=== PATIENT | female | born 1950 | race Caucasian/White ===

== ENCOUNTER 2016-07-20 14:20 | Emergency (ER) | payer MEDICARE, BC ==
[2016-07-20] MEDS ORDERED: TETRACAINE 0.5% OPHTH SOLN 4ML As Ordered ONE (15:04)
[2016-07-20] MEDS ORDERED: FLUORESCEIN OPHTH 1 MG STRIP As Ordered ONE (16:18)
[2016-07-20] MEDS ORDERED: ERYTHROMYCIN OPHTH OINT As Ordered ONE (16:30)
--- NOTE | 2016-07-20 16:36 | EDDOCDS ---
Nurse's Notes [facility] Name: Kelsey Omalley Age: 66 yrs Sex: Female : 1950 Arrival Date: 07/20/2016 Time: 14:20 Bed I10 / 23 Private MD: VIOLEAT ALEJANDRO Diagnosis: Ocular pain, left eye Presentation: 07/20 14:33 Presenting complaint: Patient states: I had left cataract surgery on July 10 and [facility] today I'm having intense pain, started yesterday afternoon and today it got really bad. Adult Sepsis Screening: The patient does not have new or worsening altered mentation. Patient's respiratory rate is less than 22. Systolic blood pressure is greater than 100. Patient has a qSOFA score of 0- Negative Sepsis Screen. Suicide/Homicide risk assessment- the patient denies having any suicidal and/or homicidal ideations and does not present with any other emotional, behavioral or mental health complaints. Status: Patient is not a automotive service professional or dependent. Transition of care: patient was not received from another setting of care. 14:33 Acuity: MIGUEL Level 3 [facility] 14:33 Method Of Arrival: Walkin/Carried/Asstd [facility] Triage Assessment: 14:36 General: Appears in no apparent distress, comfortable, Behavior is appropriate for age, [facility] cooperative. Pain: Location: left eye Pain currently is 9 out of 10 on a pain scale. EENT: Reports pain in left eye. Respiratory: Airway is patent Respiratory effort is even, unlabored, Respiratory pattern is regular, symmetrical. Derm: Skin is pink, warm & dry. Historical: - Allergies: no known allergies; - Home Meds: 1. Botox 100 unit injection solr every three months (Last dose: 07/06/2016) 2. multivitamin Oral tab 1 tab daily 3. simvastatin 20 mg Oral tab 1 tab once daily 4. Sinemet 25-100 mg Oral tab 1 tab daily 5. Synthroid 75 mcg Oral tab 1 tab once daily 6. venlafaxine 75 mg oral cp24 1 cap twice a day 7. bupropion HCl 200 mg Oral TbER 1 tab 2 times per day - PMHx: dystonic tremors; Hypertension; Hypothyroidism; - PSHx: left wrist ORIF; - Social history: Smoking status: Patient states was never smoker of tobacco. No barriers to communication noted. - Family history: Not pertinent. - : The pt / caregiver states he / she is not on anticoagulants. Home medication list is obtained from the patient. - Exposure Risk Screening:: None identified. Screenin:34 Screening information is obtained from the patient. Fall risk: No risks identified. dsf Assistance ADL's: requires no assistance with activities of daily living. Abuse/DV Screen: The patient / caregiver reports he/she is: not in a situation that causes fear, pain or injury. Nutritional screening: No deficits noted. Advance Directives: Currently, there is no health care proxy. home support is adequate. Assessment: 15:12 General: Appears uncomfortable, Behavior is appropriate for age, cooperative. EENT: srm Reports pain left eye. states sometime letters are on top of each other like when asked to read line of letters for visual acuity. Respiratory: No deficits noted. GI: No deficits noted. 16:34 Adult Sepsis Screening: The patient does not have new or worsening altered mentation. dsf Patient's respiratory rate is less than 22. Systolic blood pressure is greater than 100. Patient has a qSOFA score of 0- Negative Sepsis Screen. General: Appears in no apparent distress, comfortable, Behavior is appropriate for age, cooperative. Pain: Denies pain. Neurological: Level of Consciousness is awake, alert. Cardiovascular: No deficits noted. Respiratory: No deficits noted. Derm: Skin is pink, warm & dry. Vital Signs: 14:22 BP 138 / 74; Pulse 84; Resp 18 S; Temp 98.1(O); Pulse Ox 96% on R/A; Weight 76.66 kg gr2 (R); Height 5 ft. 2 in. (157.48 cm) (R); Pain 8/10; 14:22 Body Mass Index 30.91 (76.66 kg, 157.48 cm) gr2 Vitals: 14:22 Log In Time: July 20, 2016 at 14:22. gr2 Visual Acuity: 15:12 Left Eye Visual acuity 20/40, ; Right Eye Visual acuity 20/80, ; Both Eyes Visual srm acuity 20/60; Without Lenses; ED Course: 14:22 Patient visited by Marya Iyer. gr2 14:22 VIOLETA ALEJANDRO is Private Physician. gr2 14:22 Patient moved to Waiting gr2 14:23 Patient visited by Marya Iyer. gr2 14:23 Patient moved to Pre RCE gr2 14:34 Triage Initiated [facility] 14:42 Patient moved to I10 / 23 jam1 15:12 The patient / caregiver is instructed regarding the plan of care and ED course. srm Accompanied by Friend, Patient has correct armband on for positive identification. 15:13 Patient visited by Mariel Hurtado RN. [facility] 16:08 Jenna Baron PA-C is PHCP. dt4 16:08 Alex Patel MD is Attending Physician. dt4 16:08 Patient visited by Jenna Baron PA-C. dt4 16:34 No IV's were initiated during this patient's visit. No procedures done that require dsf assistance. Administered Medications: 16:20 Drug: Tetracaine (PF) 2 drps [tetracaine HCl (PF) 0.5 % eye drops (2 drps)] Route: dsf Ophthalmic; Site: left eye; 16:20 Drug: Fluorescein 1 strips [fluorescein 1 mg eye strips (1 strips)] Route: Ophthalmic; dsf Site: left eye; 16:34 Drug: erythromycin 0.5 inches [erythromycin 5 mg/gram (0.5 %) eye ointment (0.5 dsf inches)] Route: Ophthalmic; Site: left eye; Order Results: There are currently no results for this order. Outcome: 16:24 Discharge ordered by Provider. dt4 16:34 Discharge Assessment: Patient awake, alert and oriented x 3. No cognitive and/or dsf functional deficits noted. Patient verbalized understanding of disposition instructions. patient administered narcotics - no. The following High Risk Discharge criteria are identified: None. Discharged to home ambulatory. Condition: stable. Discharge instructions given to patient, Instructed on discharge instructions, follow up and referral plans. medication usage, Demonstrated understanding of instructions, medications, Pt was receptive of discharge instructions/ teaching. Prescriptions given X 1. No special radiology studies were completed. Property sent home with patient. 16:35 Patient left the ED. dsf Signatures: Mariel Hurtado, RN Kacy Burden, RESIDENTIAL PLUMBER RESIDENTIAL PLUMBER jam1 Zuleika Mann RN RN dsf Kacy Jeter RN RN [facility] Marya Iyer gr2 Jenna Baron PA-C PA-C dt4 MTDD
--- NOTE | 2016-07-20 16:36 | EDDOCDS ---
Physician Documentation [facility] Name: Kelsey Omalley Age: 66 yrs Sex: Female : 1950 Arrival Date: 07/20/2016 Time: 14:20 Bed I10 23 Private MD: VIOLETA ALEJANDRO Disposition: 07/20/16 16:24 Discharged to Home/Self Care. Impression: Ocular pain, left eye. - Condition is Stable. - Discharge Instructions: Corneal Abrasion. - Prescriptions for Erythromycin 5 mg/gram (0.5 %) Ophthalmic Ointment - apply 1 centimeter by OPHTHALMIC route 2-3 times daily for 7 days; 1 tube. - Medication Reconciliation, Local Pharmacy Hours form. - Follow up: Emergency Department; When: As needed; Reason: Worsening of conditions. Follow up: Private Physician; When: 2 - 3 days; Reason: Wound/Symptom Recheck, Recheck today's complaints, Continuance of care. - Problem is new. - Symptoms have improved. - Notes: WE ARE TREATING YOUR PAIN TODAY LIKE A CORNEAL ABRASION. LIKELY THE CAUSE IS SUPERFICIAL, YOUR PAIN IMPROVED WITH THE TOPICAL NUMBING AGENT. PLEASE USE THE ANTIBIOTIC DIRECTED AND CALL YOUR EYE DOCTOR FRIDAY TO LET THEM KNOW OF YOUR VISIT HERE TODAY. ANY WORSENING SYMPTOMS, PLEASE RETURN TO THE ER. Historical: - Allergies: no known allergies; - Home Meds: 1. Botox 100 unit injection solr every three months (Last dose: 07/06/2016) 2. multivitamin Oral tab 1 tab daily 3. simvastatin 20 mg Oral tab 1 tab once daily 4. Sinemet 25-100 mg Oral tab 1 tab daily 5. Synthroid 75 mcg Oral tab 1 tab once daily 6. venlafaxine 75 mg oral cp24 1 cap twice a day 7. bupropion HCl 200 mg Oral TbER 1 tab 2 times per day - PMHx: dystonic tremors; Hypertension; Hypothyroidism; - PSHx: left wrist ORIF; - Social history: Smoking status: Patient states was never smoker of tobacco. No barriers to communication noted. - Family history: Not pertinent. - : The pt / caregiver states he / she is not on anticoagulants. Home medication list is obtained from the patient. - Exposure Risk Screening:: None identified. Vital Signs: 07/20 14:22 BP 138 / 74; Pulse 84; Resp 18 S; Temp 98.1(O); Pulse Ox 96% on R/A; Weight 76.66 kg / gr2 169.01 lbs (R); Height 5 ft. 2 in. (157.48 cm) (R); Pain 8/10; 14:22 Body Mass Index 30.91 (76.66 kg, 157.48 cm) gr2 Visual Acuity: 15:12 Left Eye Visual acuity 20/40, ; Right Eye Visual acuity 20/80, ; Both Eyes Visual srm acuity 20/60; Without Lenses; MDM: 14:55 Visual Acuity ordered. ar2 14:55 Tetracaine (PF) Drops 0.5 % 2 drps Ophthalmic once ordered. ar2 14:55 Tonopen XL to provider ordered. ar2 16:17 Fluorescein Strip 1 strips Ophthalmic in left eye once ordered. dt4 16:24 erythromycin Ointment 0.5 inches Ophthalmic once; to left eye, thank you. ordered. dt4 Administered Medications: 16:20 Drug: Tetracaine (PF) 2 drps [tetracaine HCl (PF) 0.5 % eye drops (2 drps)] Route: dsf Ophthalmic; Site: left eye; 16:20 Drug: Fluorescein 1 strips [fluorescein 1 mg eye strips (1 strips)] Route: Ophthalmic; dsf Site: left eye; 16:34 Drug: erythromycin 0.5 inches [erythromycin 5 mg/gram (0.5 %) eye ointment (0.5 dsf inches)] Route: Ophthalmic; Site: left eye; Signatures: Mariel Hurtado RN RN [facility] Felipe Hooper PA-C PA-C ar2 Zuleika Mann RN RN Kacy Barrios RN RN [facility] Jenna Baron PA-C PARhonda dt4 MTDD
--- NOTE | 2016-07-22 17:36 | EDDOCDS ---
Nurse's Notes [facility] Name: Kelsey Omalley Age: 66 yrs Sex: Female : 1950 Arrival Date: 07/20/2016 Time: 14:20 Bed I10 / 23 Private MD: VIOLETA ALEJANDRO Diagnosis: Ocular pain, left eye Presentation: 07/20 14:33 Presenting complaint: Patient states: I had left cataract surgery on July 10 and [facility] today I'm having intense pain, started yesterday afternoon and today it got really bad. Adult Sepsis Screening: The patient does not have new or worsening altered mentation. Patient's respiratory rate is less than 22. Systolic blood pressure is greater than 100. Patient has a qSOFA score of 0- Negative Sepsis Screen. Suicide/Homicide risk assessment- the patient denies having any suicidal and/or homicidal ideations and does not present with any other emotional, behavioral or mental health complaints. Status: Patient is not a community service patrol officer or dependent. Transition of care: patient was not received from another setting of care. 14:33 Acuity: MIGUEL Level 3 [facility] 14:33 Method Of Arrival: Walkin/Carried/Asstd [facility] Triage Assessment: 14:36 General: Appears in no apparent distress, comfortable, Behavior is appropriate for age, [facility] cooperative. Pain: Location: left eye Pain currently is 9 out of 10 on a pain scale. EENT: Reports pain in left eye. Respiratory: Airway is patent Respiratory effort is even, unlabored, Respiratory pattern is regular, symmetrical. Derm: Skin is pink, warm & dry. Historical: - Allergies: no known allergies; - Home Meds: 1. Botox 100 unit injection solr every three months (Last dose: 07/06/2016) 2. multivitamin Oral tab 1 tab daily 3. simvastatin 20 mg Oral tab 1 tab once daily 4. Sinemet 25-100 mg Oral tab 1 tab daily 5. Synthroid 75 mcg Oral tab 1 tab once daily 6. venlafaxine 75 mg oral cp24 1 cap twice a day 7. bupropion HCl 200 mg Oral TbER 1 tab 2 times per day - PMHx: dystonic tremors; Hypertension; Hypothyroidism; - PSHx: left wrist ORIF; - Social history: Smoking status: Patient states was never smoker of tobacco. No barriers to communication noted. - Family history: Not pertinent. - : The pt / caregiver states he / she is not on anticoagulants. Home medication list is obtained from the patient. - Exposure Risk Screening:: None identified. Screenin:34 Screening information is obtained from the patient. Fall risk: No risks identified. dsf Assistance ADL's: requires no assistance with activities of daily living. Abuse/DV Screen: The patient / caregiver reports he/she is: not in a situation that causes fear, pain or injury. Nutritional screening: No deficits noted. Advance Directives: Currently, there is no health care proxy. home support is adequate. Assessment: 15:12 General: Appears uncomfortable, Behavior is appropriate for age, cooperative. EENT: srm Reports pain left eye. states sometime letters are on top of each other like when asked to read line of letters for visual acuity. Respiratory: No deficits noted. GI: No deficits noted. 16:34 Adult Sepsis Screening: The patient does not have new or worsening altered mentation. dsf Patient's respiratory rate is less than 22. Systolic blood pressure is greater than 100. Patient has a qSOFA score of 0- Negative Sepsis Screen. General: Appears in no apparent distress, comfortable, Behavior is appropriate for age, cooperative. Pain: Denies pain. Neurological: Level of Consciousness is awake, alert. Cardiovascular: No deficits noted. Respiratory: No deficits noted. Derm: Skin is pink, warm & dry. Vital Signs: 14:22 BP 138 / 74; Pulse 84; Resp 18 S; Temp 98.1(O); Pulse Ox 96% on R/A; Weight 76.66 kg gr2 (R); Height 5 ft. 2 in. (157.48 cm) (R); Pain 8/10; 14:22 Body Mass Index 30.91 (76.66 kg, 157.48 cm) gr2 Vitals: 14:22 Log In Time: July 20, 2016 at 14:22. gr2 Visual Acuity: 15:12 Left Eye Visual acuity 20/40, ; Right Eye Visual acuity 20/80, ; Both Eyes Visual srm acuity 20/60; Without Lenses; ED Course: 14:22 Patient visited by Marya Iyer. gr2 14:22 VIOLETA ALEJANDRO is Private Physician. gr2 14:22 Patient moved to Waiting gr2 14:23 Patient visited by Marya Iyer. gr2 14:23 Patient moved to Pre RCE gr2 14:34 Triage Initiated [facility] 14:42 Patient moved to I10 / 23 jam1 15:12 The patient / caregiver is instructed regarding the plan of care and ED course. srm Accompanied by Friend, Patient has correct armband on for positive identification. 15:13 Patient visited by Mariel Hurtado RN. srm 16:08 Jenna Baron PA-C is PHCP. dt4 16:08 Alex Patel MD is Attending Physician. dt4 16:08 Patient visited by Jenna Baron PA-C. dt4 16:34 No IV's were initiated during this patient's visit. No procedures done that require dsf assistance. 07/21 18:09 T-Sheet-- Draft Copy was scanned into [employer] and attached to record. klr Administered Medications: 07/20 16:20 Drug: Tetracaine (PF) 2 drps [tetracaine HCl (PF) 0.5 % eye drops (2 drps)] Route: dsf Ophthalmic; Site: left eye; 16:20 Drug: Fluorescein 1 strips [fluorescein 1 mg eye strips (1 strips)] Route: Ophthalmic; dsf Site: left eye; 16:34 Drug: erythromycin 0.5 inches [erythromycin 5 mg/gram (0.5 %) eye ointment (0.5 dsf inches)] Route: Ophthalmic; Site: left eye; Order Results: There are currently no results for this order. Outcome: 16:24 Discharge ordered by Provider. dt4 16:34 Discharge Assessment: Patient awake, alert and oriented x 3. No cognitive and/or dsf functional deficits noted. Patient verbalized understanding of disposition instructions. patient administered narcotics - no. The following High Risk Discharge criteria are identified: None. Discharged to home ambulatory. Condition: stable. Discharge instructions given to patient, Instructed on discharge instructions, follow up and referral plans. medication usage, Demonstrated understanding of instructions, medications, Pt was receptive of discharge instructions/ teaching. Prescriptions given X 1. No special radiology studies were completed. Property sent home with patient. 16:35 Patient left the ED. dsf Signatures: Mariel Hurtado RN RN srm Murphy, Jane, TECHNICAL SOLUTION ARCHITECT TECHNICAL SOLUTION ARCHITECT jamZuleika Saucedo RN RN dsf Kacy Jeter RN RN Marya Hernandez gr2 Jenna Baron, MELINDA ramos4 Petra Bradley Chart Complete MTDD
--- NOTE | 2016-07-22 17:36 | EDDOCDS ---
Physician Documentation [facility] Name: Kelsey Omalley Age: 66 yrs Sex: Female : 1950 Arrival Date: 07/20/2016 Time: 14:20 Bed I10 23 Private MD: VIOLETA ALEJANDRO Disposition: 07/20/16 16:24 Discharged to Home/Self Care. Impression: Ocular pain, left eye. - Condition is Stable. - Discharge Instructions: Corneal Abrasion. - Prescriptions for Erythromycin 5 mg/gram (0.5 %) Ophthalmic Ointment - apply 1 centimeter by OPHTHALMIC route 2-3 times daily for 7 days; 1 tube. - Medication Reconciliation, Local Pharmacy Hours form. - Follow up: Emergency Department; When: As needed; Reason: Worsening of conditions. Follow up: Private Physician; When: 2 - 3 days; Reason: Wound/Symptom Recheck, Recheck today's complaints, Continuance of care. - Problem is new. - Symptoms have improved. - Notes: WE ARE TREATING YOUR PAIN TODAY LIKE A CORNEAL ABRASION. LIKELY THE CAUSE IS SUPERFICIAL, YOUR PAIN IMPROVED WITH THE TOPICAL NUMBING AGENT. PLEASE USE THE ANTIBIOTIC DIRECTED AND CALL YOUR EYE DOCTOR FRIDAY TO LET THEM KNOW OF YOUR VISIT HERE TODAY. ANY WORSENING SYMPTOMS, PLEASE RETURN TO THE ER. Historical: - Allergies: no known allergies; - Home Meds: 1. Botox 100 unit injection solr every three months (Last dose: 07/06/2016) 2. multivitamin Oral tab 1 tab daily 3. simvastatin 20 mg Oral tab 1 tab once daily 4. Sinemet 25-100 mg Oral tab 1 tab daily 5. Synthroid 75 mcg Oral tab 1 tab once daily 6. venlafaxine 75 mg oral cp24 1 cap twice a day 7. bupropion HCl 200 mg Oral TbER 1 tab 2 times per day - PMHx: dystonic tremors; Hypertension; Hypothyroidism; - PSHx: left wrist ORIF; - Social history: Smoking status: Patient states was never smoker of tobacco. No barriers to communication noted. - Family history: Not pertinent. - : The pt / caregiver states he / she is not on anticoagulants. Home medication list is obtained from the patient. - Exposure Risk Screening:: None identified. Vital Signs: 07/20 14:22 BP 138 / 74; Pulse 84; Resp 18 S; Temp 98.1(O); Pulse Ox 96% on R/A; Weight 76.66 kg / gr2 169.01 lbs (R); Height 5 ft. 2 in. (157.48 cm) (R); Pain 8/10; 14:22 Body Mass Index 30.91 (76.66 kg, 157.48 cm) gr2 Visual Acuity: 15:12 Left Eye Visual acuity 20/40, ; Right Eye Visual acuity 20/80, ; Both Eyes Visual srm acuity 20/60; Without Lenses; MDM: 14:55 Visual Acuity ordered. ar2 14:55 Tetracaine (PF) Drops 0.5 % 2 drps Ophthalmic once ordered. ar2 14:55 Tonopen XL to provider ordered. ar2 16:17 Fluorescein Strip 1 strips Ophthalmic in left eye once ordered. dt4 16:24 erythromycin Ointment 0.5 inches Ophthalmic once; to left eye, thank you. ordered. dt4 07/21 18:09 T-Sheet-- Draft Copy was scanned into [email or web address] and attached to record. klr Administered Medications: 07/20 16:20 Drug: Tetracaine (PF) 2 drps [tetracaine HCl (PF) 0.5 % eye drops (2 drps)] Route: dsf Ophthalmic; Site: left eye; 16:20 Drug: Fluorescein 1 strips [fluorescein 1 mg eye strips (1 strips)] Route: Ophthalmic; dsf Site: left eye; 16:34 Drug: erythromycin 0.5 inches [erythromycin 5 mg/gram (0.5 %) eye ointment (0.5 dsf inches)] Route: Ophthalmic; Site: left eye; Signatures: Mariel Hurtado RN RN srm Robertshaw, Aaron, PA-C PA-C ar2 Zuleika Mann RN RN dsf Hafner, Jane, RN RN [facility] Jenna Baron PA-C PA-C dt4 Petra Bradley The chart was reviewed and I authenticate all verbal orders and agree with the evaluation and treatment provided.Attachments: 07/21 18:09 T-Sheet-- Draft Copy klr Chart Complete MTDD
--- NOTE | 2016-07-22 17:36 | EDDOCDS ---
Physician Documentation [facility] Name: Kelsey Omalley Age: 66 yrs Sex: Female : 1950 Arrival Date: 07/20/2016 Time: 14:20 Bed I10 23 Private MD: VIOLETA ALEJANDRO Disposition: 07/20/16 16:24 Discharged to Home/Self Care. Impression: Ocular pain, left eye. - Condition is Stable. - Discharge Instructions: Corneal Abrasion. - Prescriptions for Erythromycin 5 mg/gram (0.5 %) Ophthalmic Ointment - apply 1 centimeter by OPHTHALMIC route 2-3 times daily for 7 days; 1 tube. - Medication Reconciliation, Local Pharmacy Hours form. - Follow up: Emergency Department; When: As needed; Reason: Worsening of conditions. Follow up: Private Physician; When: 2 - 3 days; Reason: Wound/Symptom Recheck, Recheck today's complaints, Continuance of care. - Problem is new. - Symptoms have improved. - Notes: WE ARE TREATING YOUR PAIN TODAY LIKE A CORNEAL ABRASION. LIKELY THE CAUSE IS SUPERFICIAL, YOUR PAIN IMPROVED WITH THE TOPICAL NUMBING AGENT. PLEASE USE THE ANTIBIOTIC DIRECTED AND CALL YOUR EYE DOCTOR FRIDAY TO LET THEM KNOW OF YOUR VISIT HERE TODAY. ANY WORSENING SYMPTOMS, PLEASE RETURN TO THE ER. Historical: - Allergies: no known allergies; - Home Meds: 1. Botox 100 unit injection solr every three months (Last dose: 07/06/2016) 2. multivitamin Oral tab 1 tab daily 3. simvastatin 20 mg Oral tab 1 tab once daily 4. Sinemet 25-100 mg Oral tab 1 tab daily 5. Synthroid 75 mcg Oral tab 1 tab once daily 6. venlafaxine 75 mg oral cp24 1 cap twice a day 7. bupropion HCl 200 mg Oral TbER 1 tab 2 times per day - PMHx: dystonic tremors; Hypertension; Hypothyroidism; - PSHx: left wrist ORIF; - Social history: Smoking status: Patient states was never smoker of tobacco. No barriers to communication noted. - Family history: Not pertinent. - : The pt / caregiver states he / she is not on anticoagulants. Home medication list is obtained from the patient. - Exposure Risk Screening:: None identified. Vital Signs: 07/20 14:22 BP 138 / 74; Pulse 84; Resp 18 S; Temp 98.1(O); Pulse Ox 96% on R/A; Weight 76.66 kg / gr2 169.01 lbs (R); Height 5 ft. 2 in. (157.48 cm) (R); Pain 8/10; 14:22 Body Mass Index 30.91 (76.66 kg, 157.48 cm) gr2 Visual Acuity: 15:12 Left Eye Visual acuity 20/40, ; Right Eye Visual acuity 20/80, ; Both Eyes Visual srm acuity 20/60; Without Lenses; MDM: 14:55 Visual Acuity ordered. ar2 14:55 Tetracaine (PF) Drops 0.5 % 2 drps Ophthalmic once ordered. ar2 14:55 Tonopen XL to provider ordered. ar2 16:17 Fluorescein Strip 1 strips Ophthalmic in left eye once ordered. dt4 16:24 erythromycin Ointment 0.5 inches Ophthalmic once; to left eye, thank you. ordered. dt4 07/21 18:09 T-Sheet-- Draft Copy was scanned into [employer] and attached to record. klr Administered Medications: 07/20 16:20 Drug: Tetracaine (PF) 2 drps [tetracaine HCl (PF) 0.5 % eye drops (2 drps)] Route: dsf Ophthalmic; Site: left eye; 16:20 Drug: Fluorescein 1 strips [fluorescein 1 mg eye strips (1 strips)] Route: Ophthalmic; dsf Site: left eye; 16:34 Drug: erythromycin 0.5 inches [erythromycin 5 mg/gram (0.5 %) eye ointment (0.5 dsf inches)] Route: Ophthalmic; Site: left eye; Signatures: Mariel Hurtado RN RN srm Robertshaw, Aaron, PA-C PA-C ar2 Zuleika Mann RN RN dsf Hafner, Jane, RN RN [facility] Jenna Baron PA-C PA-C dt4 Petra Bradley The chart was reviewed and I authenticate all verbal orders and agree with the evaluation and treatment provided.Attachments: 07/21 18:09 T-Sheet-- Draft Copy klr Chart Complete MTDD
== END 2016-07-20 16:35 | disposition home or self-care (01) ==
LOC: M ED 14:20
DX: H57.12 Ocular pain, left eye (principal); Z98.890 Other specified postprocedural states; I10 Essential (primary) hypertension; R25.8 Other abnormal involuntary movements; E03.9 Hypothyroidism, unspecified; Z79.899 Other long term (current) drug therapy; Z79.52 Long term (current) use of systemic steroids

== ENCOUNTER → 2017-08-15 | Outpatient (CLI) | payer MEDICARE, BC ==
[2017-08-15 07:44] LABS: HEMATOCRIT 40.7 % (36.0-47.0); HEMOGLOBIN 13.7 g/dl (12.0-16.0); MEAN CORPUSCULAR HEMOGLOBIN 30.1 pg (27.0-33.0); MEAN CORPUSCULAR HGB CONC 33.7 g/dl (32.0-36.5); MEAN CORPUSCULAR VOLUME 89.5 fl (80.0-96.0); PLATELET COUNT, AUTOMATED 258 10^3/uL (150-450); RED BLOOD COUNT 4.55 10^6/uL (4.00-5.40); RED CELL DISTRIBUTION WIDTH 12.9 % (11.5-14.5)
[2017-08-15 08:07] LABS: APPEARANCE, URINE HAZY (CLEAR); BACTERIA, URINE AUTO NEGATIVE (NEGATIVE); BILIRUBIN, URINE AUTO NEGATIVE (NEGATIVE); BLOOD, URINE BLOOD NEGATIVE (NEGATIVE); COLOR, URINE YELLOW (YELLOW); GLUCOSE, URINE (UA) AUTO NEGATIVE (NEGATIVE); KETONE, URINE AUTO NEGATIVE (NEGATIVE); LEUKOCYTE ESTERASE, URINE AUTO TRACE (NEGATIVE); NITRITE, URINE AUTO NEGATIVE (NEGATIVE); PROTEIN, URINE AUTO NEGATIVE (NEGATIVE); RBC, URINE AUTO 3 /HPF (0-3); SPECIFIC GRAVITY URINE AUTO 1.012 (1.002-1.035); SQUAMOUS EPITHELIAL CELL UR AU 2 /HPF (0-6); UROBILINOGEN, URINE AUTO 0.2 mg/dL (0.0-2.0); WBC, URINE AUTO 1 /HPF (0-3)
[2017-08-15 08:18] LABS: ALBUMIN 4.1 GM/DL (3.2-5.2); ALBUMIN/GLOBULIN RATIO 1.24 (1.00-1.93); ALKALINE PHOSPHATASE 56 U/L (45-117); ALT/SGPT 32 U/L (12-78); ANION GAP 7 MEQ/L (8-16); AST/SGOT 23 U/L (7-37); BILIRUBIN,TOTAL 0.5 MG/DL (0.2-1.0); BLOOD UREA NITROGEN 16 MG/DL (7-18); CALCIUM LEVEL 9.2 MG/DL (8.8-10.2); CARBON DIOXIDE LEVEL 29 MEQ/L (21-32); CHLORIDE LEVEL 106 MEQ/L (98-107); CHOLESTEROL LEVEL 202 MG/DL (<200); CHOLESTEROL RISK RATIO 2.693 (<5); CREATININE FOR GFR 1.02 MG/DL (0.55-1.30); GLOMERULAR FILTRATION RATE 57.5 (>45); GLUCOSE, FASTING 92 MG/DL (70-100); HDL CHOLESTEROL 75 MG/DL (>40); LDL CHOLESTEROL 109.4 MG/DL (<100); NON-HDL-C 127 MG/DL; POTASSIUM SERUM 4.3 MEQ/L (3.5-5.1); SODIUM LEVEL 142 MEQ/L (136-145); TOTAL PROTEIN 7.4 GM/DL (6.4-8.2); TRIGLYCERIDES LEVEL 88 MG/DL (<150)
== END ==
LOC: M LAB 07:08
DX: E78.5 Hyperlipidemia, unspecified (principal); G25.81 Restless legs syndrome; K21.9 Gastro-esophageal reflux disease without esophagitis
CPT/HCPCS: 84443

== ENCOUNTER → 2018-03-18 | Outpatient (CLI) | payer MEDICARE, BC | LOC: M WUC 13:56 | DX: M25.561 Pain in right knee (principal) | CPT/HCPCS: 73564 ==

== ENCOUNTER 2018-08-07 22:10 | Emergency (ER) | payer MEDICARE, BC ==
[~2018-08-07] VITALS: Ht 154.9 cm; Wt 75.5 kg
[2018-08-07] MEDS ORDERED: LEVO100T5 PO (22:26)
[2018-08-07] MEDS ORDERED: TRAZ-160 PO (22:26)
[2018-08-07] MEDS ORDERED: BOTOX (22:26)
[2018-08-07] MEDS ORDERED: PRAM0.126 PO (22:26)
[2018-08-07] MEDS ORDERED: CYMB60CA3 PO (22:26)
[2018-08-07] MEDS ORDERED: BUPR1TAB56 PO (22:26)
[2018-08-07] MEDS ORDERED: MULTCAP PO (22:26)
[2018-08-07] MEDS ORDERED: D400400C PO (22:26)
[2018-08-07] MEDS ORDERED: DULO30CA PO (22:26)
[2018-08-07] MEDS ORDERED: REST0.057 (22:26)
[2018-08-07] MEDS ORDERED: SIMV20TA2 PO (22:26)
[2018-08-07] MEDS ORDERED: CALC500T36 PO (22:26)
[2018-08-07] MEDS ORDERED: ASPIRIN 325 MG TAB PO ONE (22:30)
[2018-08-07] MEDS ORDERED: GI COCKTAIL 50ML BTL(HYOSCYAMINE/MAALOX/LIDOCAINE VISCOUS)(1:3:1) PO ONE (22:30)
[2018-08-07] MEDS ORDERED: PANTOPRAZOLE 40MG INJ (PROTONIX) (C9113) IV ONE (22:30)
[2018-08-07] MEDS ORDERED: SUCRALFATE 1 GM TAB PO ONE (22:30)
[2018-08-07 22:40] LABS: BASO # 0.1 10^3/uL (0.0-0.2); BASO % 0.5 % (0.0-1.0); EOS # 0.2 10^3/uL (0.0-0.50); EOS % 1.5 % (0.0-3.0); HEMATOCRIT 39.1 % (36.0-47.0); HEMOGLOBIN 12.9 g/dl (12.0-15.5); LYMPH # 2.4 10^3/uL (1.5-4.5); LYMPH % 21.3 % (24.0-44.0); MEAN CORPUSCULAR HEMOGLOBIN 29.5 pg (27.0-33.0); MEAN CORPUSCULAR VOLUME 89.5 fl (80.0-96.0); MONO # 0.8 10^3/uL (0.0-0.8); MONO % 7.5 % (0.0-5.0); NEUTROPHILS # 7.8 10^3/uL (1.8-7.7); NEUTROPHILS % 68.8 % (36.0-66.0); PLATELET COUNT, AUTOMATED 275 10^3/uL (150-450); RED BLOOD COUNT 4.37 10^6/uL (4.00-5.40); WHITE BLOOD COUNT 11.3 10^3/uL (4.0-10.0)
[2018-08-07 22:52] LABS: INR 0.91; PROTHROMBIN TIME 12.3 SECONDS (12.1-14.4)
[2018-08-07 22:53] LABS: PARTIAL THROMBOPLASTIN TIME 28.5 SECONDS (25.4-37.6)
[2018-08-07 23:21] LABS: ALBUMIN 3.7 GM/DL (3.2-5.2); ALT/SGPT 29 U/L (12-78); BILIRUBIN,DIRECT < 0.1 MG/DL (0.0-0.2); BILIRUBIN,TOTAL 0.2 MG/DL (0.2-1.0); BLOOD UREA NITROGEN 15 MG/DL (7-18); CALCIUM LEVEL 8.7 MG/DL (8.8-10.2); CARBON DIOXIDE LEVEL 29 MEQ/L (21-32); CHLORIDE LEVEL 106 MEQ/L (98-107); CPK CREATINE PHOSPHOKINASE 94 U/L (26-192); CREATININE FOR GFR 0.86 MG/DL (0.55-1.30); GLOMERULAR FILTRATION RATE > 60.0 (>45); GLUCOSE, FASTING 95 MG/DL (70-100); LIPASE 66 U/L (73-393); POTASSIUM SERUM 3.8 MEQ/L (3.5-5.1); SODIUM LEVEL 139 MEQ/L (136-145); TROPONIN I < 0.02 NG/ML (< 0.10)
[2018-08-08] MEDS ORDERED: CARA1TAB6 PO (00:27)
[2018-08-08] MEDS ORDERED: PROT1TAB2 PO (00:27)
[2018-08-08 00:30] VITALS: BP 120/70
--- NOTE | 2018-08-08 06:37 | ECGEPIP ---
Stationary ECG Study [facility] - ED Test Date: 2018-08-07 Pat Name: ISAAC CULLEN Department: Room: - Gender: F Preforms Laminator: : 1950 Requested By: ADAN BEVERLY Order Number: [id number] Reading MD: Mike Hackett Measurements Intervals [place] Rate: 78 P: 69 ND: 155 QRS: -5 QRSD: 89 T: 64 QT: 376 QTc: 431 Interpretive Statements SINUS RHYTHM NONSPECIFIC T-WAVE ABNORMALITY DELAYED R WAVE PROGRESSION 09/12/15 [facility] Electronically Signed On 08-08-2018 6:37:17 EST by Mike Hackett
== END 2018-08-08 00:39 | disposition home or self-care (01) ==
LOC: M ED 22:10
DX: K21.9 Gastro-esophageal reflux disease without esophagitis (principal); E78.5 Hyperlipidemia, unspecified; F41.9 Anxiety disorder, unspecified; Z79.899 Other long term (current) drug therapy
CPT/HCPCS: 80048; 80076; 82550; 82553; 83690; 84484; 85025; 85610; 85730; 93005; 96374; 99284; C9113

== ENCOUNTER 2018-10-22 19:23 | Emergency (ER) | payer MEDICARE, BC ==
[~2018-10-22] VITALS: Ht 154.9 cm; Wt 73.6 kg
[~2018-10-22 19:23] MED LIST: BOTOX; BUPR1TAB56 PO; CALC12504 PO; CARA1TAB6 PO; CYMB60CA3 PO; D400400C PO; DULO30CA9 PO; LEVO100T5 PO; MULTCAP PO; PRAM0.126 PO; PROT1TAB2 PO; REST0.057; SIMV20TA2 PO; TRAZ-160 PO
--- NOTE | 2018-10-22 20:50 | REPVR ---
EXAM: US Duplex Right Lower Extremity Veins, Limited EXAM DATE/TIME: 10/22/2018 8:22 PM CLINICAL HISTORY: 68 years old, female; Pain; Leg, lower; Right; Additional info: Right leg pain TECHNIQUE: Imaging protocol: Real-time Duplex ultrasound of the Right Lower Extremity with 2-D sidhu scale, color Doppler flow and spectral waveform analysis. Limited exam was focused on the right lower extremity veins. COMPARISON: No relevant prior studies available. FINDINGS: Right deep veins: Unremarkable. The common femoral, femoral, proximal profunda femoral and popliteal veins are patent without thrombus. Normal Doppler waveforms. Normal compressibility and/or augmentation response. Right superficial veins: Unremarkable. Saphenofemoral junction is patent without thrombus. Soft tissues: Unremarkable. IMPRESSION: No acute findings. No evidence of deep vein thrombosis. Electronically signed by: Floridalma Avalos On 10/22/2018 20:49:33 PM
[2018-10-22] MEDS ORDERED: NAPR-837 PO (21:05)
[2018-10-22] MEDS ORDERED: NAPROXEN 250 MG TAB PO ONE (21:15)
[2018-10-22 21:17] VITALS: BP 115/67
== END 2018-10-22 21:17 | disposition home or self-care (01) ==
LOC: M ED 19:23
DX: M79.661 Pain in right lower leg (principal); Z79.899 Other long term (current) drug therapy

== ENCOUNTER → 2019-04-19 | Outpatient (CLI) | payer MEDICARE, BC ==
[~2019-04-19] MED LIST changes: -CALC12504 PO; +CALC500T61 PO; +NAPR-837 PO; -TRAZ-160 PO; +TRAZ-252 PO
--- NOTE | 2019-04-20 08:28 | REP ---
MRI brain: 04/19/2019. Indication: Paresthesia. Stroke. Comparison: None. Technique: Multiplanar short and long TR sequences of the brain were obtained without IV Gadolinium. Findings: There are no areas of restricted diffusion. There is no intracranial mass effect or hydrocephalous. No intracranial hemorrhage is present. There are a few small areas of elevated CT white matter prolongation most consistent with chronic small vessel disease sequelae. The large intracranial flow voids are unremarkable. Impression: No acute intracranial process. Sequelae of chronic microangiopathic ischemic disease. Electronically Signed by Dylon Castillo DO 04/20/2019 08:19 A
== END ==
LOC: M RAD 17:06
PROVIDERS: ATTEND Internal Medicine
DX: R20.2 Paresthesia of skin (principal); I69.998 Other sequelae following unspecified cerebrovascular disease

== ENCOUNTER → 2019-06-04 | Outpatient (CLI) | payer MEDICARE, BC ==
[~2019-06-04] MED LIST changes: -SIMV20TA2 PO; +SIMV20TA22 PO
--- NOTE | 2019-06-04 18:53 | REP ---
RIGHT WRIST COMPLETE: 06/04/2019. Clinical history: Hand and wrist contusion, trauma. Comparison: Right hand today. Findings: Distal radius and ulna without fracture or avulsion. On the lateral view, there is an ossific density that suggests an avulsion fragment off the dorsal aspect of the wrist likely off the triquetrum; can only see this clearly on the lateral view. There is soft tissue swelling about the ulnar and dorsal wrist. The carpal bones show no other significant finding. The metacarpals and MCP joints intact. Impression: 1. Bony avulsion off the dorsal aspect of the wrist over the proximal carpal row. This could be acute or chronic, but there is soft tissue swelling about the dorsal aspect of the wrist and distal forearm. If the avulsion is acute, it is likely off the triquetrum. Electronically Signed by Chilango Parnell MD 06/04/2019 08:04 P
--- NOTE | 2019-06-04 18:55 | REP ---
RIGHT HAND, COMPLETE: 06/04/2019. Clinical history: Trauma, hand and wrist contusion. Ulnar wrist pain. Comparison: A right wrist this date. Findings: Four views show soft tissue swelling distal forearm and dorsal aspect of the wrist on the lateral view. Radius and ulna grossly intact without acute finding. The lateral view shows a ossific density about the proximal carpal row which likely is off the triquetrum ,chronic versus acute. No other carpal finding of significance. The metacarpals, MCP joints, CMC joints, phalanges and IP joints show only minimal degenerative change and no fractures. Impression: 1. Some soft tissue swelling dorsal aspect of the wrist and distal forearm with an avulsion fragment superimposed over the dorsal aspect proximal carpal row, likely source would be the triquetrum. This may be chronic or acute. Electronically Signed by Chilango Parnell MD 06/04/2019 08:04 P
== END ==
LOC: M WUC 16:57
PROVIDERS: ATTEND Physician Assistant
DX: S60.211A Contusion of right wrist, initial encounter (principal); X58.XXXA Exposure to other specified factors, initial encounter; Y92.89 Other specified places as the place of occurrence of the external cause

== ENCOUNTER → 2019-07-21 | Outpatient (CLI) | payer MEDICARE, BC | LOC: M LAB 13:32 | PROVIDERS: ATTEND Internal Medicine | DX: E03.9 Hypothyroidism, unspecified (principal) ==

== ENCOUNTER → 2019-11-24 | Outpatient (CLI) | payer MEDICARE, BC ==
[2019-11-24 09:51] LABS: CHOLESTEROL RISK RATIO 2.687 (<5)
[2019-11-24 09:55] LABS: HEMOGLOBIN A1c 6.1 %
== END ==
LOC: M LAB 08:45
PROVIDERS: ATTEND Psychiatry & Neurology Psychiatry
DX: Z51.81 Encounter for therapeutic drug level monitoring (principal); Z79.899 Other long term (current) drug therapy

== ENCOUNTER → 2020-04-24 | Outpatient (CLI) | payer MEDICARE, BC ==
[2020-04-24 08:16] LABS: APPEARANCE, URINE CLEAR (CLEAR); BACTERIA, URINE AUTO NEGATIVE (NEGATIVE); BILIRUBIN, URINE AUTO NEGATIVE (NEGATIVE); BLOOD, URINE BLOOD NEGATIVE (NEGATIVE); COLOR, URINE YELLOW (YELLOW); GLUCOSE, URINE (UA) AUTO NEGATIVE (NEGATIVE); KETONE, URINE AUTO NEGATIVE (NEGATIVE); LEUKOCYTE ESTERASE, URINE AUTO 1+ (NEGATIVE); NITRITE, URINE AUTO NEGATIVE (NEGATIVE); PROTEIN, URINE AUTO NEGATIVE (NEGATIVE); RBC, URINE AUTO 3 /HPF (0-3); SPECIFIC GRAVITY URINE AUTO 1.008 (1.002-1.035); SQUAMOUS EPITHELIAL CELL UR AU 1 /HPF (0-6); UROBILINOGEN, URINE AUTO 0.2 mg/dL (0.0-2.0); WBC, URINE AUTO 1 /HPF (0-3)
[2020-04-24 08:25] LABS: HEMATOCRIT 38.7 % (36.0-47.0); HEMOGLOBIN 12.6 g/dl (12.0-15.5); MEAN CORPUSCULAR HEMOGLOBIN 30.1 pg (27.0-33.0); MEAN CORPUSCULAR HGB CONC 32.6 g/dl (32.0-36.5); MEAN CORPUSCULAR VOLUME 92.4 fl (80.0-96.0); PLATELET COUNT, AUTOMATED 231 10^3/uL (150-450); RED BLOOD COUNT 4.19 10^6/uL (4.00-5.40); WHITE BLOOD COUNT 5.9 10^3/uL (4.0-10.0)
[2020-04-24 09:01] LABS: ALBUMIN 3.7 GM/DL (3.2-5.2); ALT/SGPT 29 U/L (12-78); BILIRUBIN,TOTAL 0.2 MG/DL (0.2-1.0); BLOOD UREA NITROGEN 20 MG/DL (7-18); CALCIUM LEVEL 8.6 MG/DL (8.8-10.2); CARBON DIOXIDE LEVEL 28 MEQ/L (21-32); CHLORIDE LEVEL 103 MEQ/L (98-107); CHOLESTEROL LEVEL 177 MG/DL (<200); CHOLESTEROL RISK RATIO 2.565 (<5); CREATININE FOR GFR 0.82 MG/DL (0.55-1.30); GLOMERULAR FILTRATION RATE > 60.0 (>45); GLUCOSE, FASTING 69 MG/DL (70-100); HDL CHOLESTEROL 69 MG/DL (>40); LDL CHOLESTEROL 92 MG/DL (<100); NON-HDL-C 108 MG/DL; SODIUM LEVEL 137 MEQ/L (136-145); THYROID STIMULATING HORMONE 0.669 uIU/ML (0.358-3.740); TOTAL PROTEIN 6.7 GM/DL (6.4-8.2); TRIGLYCERIDES LEVEL 81 MG/DL (<150)
== END ==
LOC: M LAB 07:21
PROVIDERS: ATTEND Internal Medicine
DX: E78.5 Hyperlipidemia, unspecified (principal); E03.9 Hypothyroidism, unspecified; F32.9 Major depressive disorder, single episode, unspecified

== ENCOUNTER → 2021-09-17 | Outpatient (REF) | payer MEDICARE, BC ==
[~2021-09-17] MED LIST changes: -CYMB60CA3 PO; +CYMB60CA4 PO
== END ==
LOC: M SFHCDERM 14:07
PROVIDERS: ATTEND Nurse Practitioner Family
DX: L57.0 Actinic keratosis (principal)

== ENCOUNTER → 2022-01-01 | Outpatient (CLI) | payer MEDICARE, MEDICAID | LOC: M LAB 10:44 | PROVIDERS: ATTEND Internal Medicine | DX: E03.9 Hypothyroidism, unspecified (principal) ==

== ENCOUNTER → 2022-08-05 | Outpatient (CLI) | payer MEDICARE, MEDICAID ==
[2022-08-05 08:49] LABS: APPEARANCE, URINE MANUAL CLEAR (CLEAR); BILIRUBIN, URINE MANUAL NEGATIVE (NEGATIVE); BLOOD URINE MANUAL NEGATIVE (NEGATIVE); COLOR, URINE MANUAL LT YELLOW (YELLOW); GLUCOSE, URINE (UA) MANUAL NEGATIVE (NEGATIVE); KETONE, URINE MANUAL NEGATIVE (NEGATIVE); LEUKOCYTE ESTERASE, URINE MAN TRACE (NEGATIVE); NITRITE, URINE MANUAL NEGATIVE (NEGATIVE); PH,URINE MAN 5.5 UNITS (5.0 - 7.0); PROTEIN, URINE MANUAL NEGATIVE (NEGATIVE); UROBILINOGEN, URINE MANUAL NORMAL (NORMAL)
[2022-08-05 09:01] LABS: HEMATOCRIT 36.7 % (36.0-47.0); HEMOGLOBIN 12.2 g/dl (12.0-15.5); MEAN CORPUSCULAR HEMOGLOBIN 30.5 pg (27.0-33.0); MEAN CORPUSCULAR HGB CONC 33.2 g/dl (32.0-36.5); MEAN CORPUSCULAR VOLUME 91.8 fl (80.0-96.0); PLATELET COUNT, AUTOMATED 232 10^3/uL (150-450); WHITE BLOOD COUNT 5.3 10^3/uL (4.0-10.0)
[2022-08-05 09:10] LABS: BACTERIA, URINE NONE SEEN; HYALINE CAST, URINE NONE SEEN /lpf (0-1); RBC, URINE NONE SEEN /hpf (0-3); SQUAMOUS EPITHELIAL CELL URINE SMALL AMOUNT /hpf (SMALL AMT); WBC, URINE 0-1 /hpf (0-3)
[2022-08-05 09:13] LABS: ALKALINE PHOSPHATASE 52 U/L (46-116); ALT/SGPT 16 U/L (7.0-40); AST/SGOT 21 U/L (<34); BILIRUBIN,TOTAL 0.4 MG/DL (0.3-1.2); BLOOD UREA NITROGEN 13 MG/DL (9-23); CALCIUM LEVEL 9.6 MG/DL (8.3-10.6); CARBON DIOXIDE LEVEL 30 MMOL/L (20-31); CHLORIDE LEVEL 102 MMOL/L (98-107); CHOLESTEROL LEVEL 167 MG/DL (<200); CHOLESTEROL RISK RATIO 2.51 (<5); CREATININE FOR GFR 0.82 MG/DL (0.55-1.30); GLOMERULAR FILTRATION RATE > 60.0 (>39); GLUCOSE, FASTING 85 MG/DL (74-106); HDL CHOLESTEROL 66.5 MG/DL (>40); LDL CHOLESTEROL 87.5 MG/DL (<100); NON-HDL-C 101 MG/DL; POTASSIUM SERUM 4.2 MMOL/L (3.5-5.1); SODIUM LEVEL 137 MMOL/L (136-145); THYROID STIMULATING HORMONE 2.962 uIU/ML (0.55-4.78); TOTAL PROTEIN 6.5 G/DL (5.7-8.2); TRIGLYCERIDES LEVEL 65 MG/DL (<150)
[2022-08-05 09:14] LABS: TOTAL 25(OH) VITAMIN D 56.6 NG/ML (20.0-100.0)
[2022-08-05 10:57] LABS: HEMOGLOBIN A1c 5.4 % (4.0-6.0)
== END ==
LOC: M LAB 07:48
PROVIDERS: ATTEND Internal Medicine
DX: E78.5 Hyperlipidemia, unspecified (principal); E03.9 Hypothyroidism, unspecified; F32.9 Major depressive disorder, single episode, unspecified; M85.80 Other specified disorders of bone density and structure, unspecified site; E74.39 Other disorders of intestinal carbohydrate absorption; Z79.899 Other long term (current) drug therapy

== ENCOUNTER → 2022-08-28 | Outpatient (CLI) | payer MEDICARE, MEDICAID | LOC: M WHC 08:21 | PROVIDERS: ATTEND Internal Medicine | DX: Z12.31 Encounter for screening mammogram for malignant neoplasm of breast (principal); M85.89 Other specified disorders of bone density and structure, multiple sites; M85.851 Other specified disorders of bone density and structure, right thigh; M85.852 Other specified disorders of bone density and structure, left thigh ==

== ENCOUNTER → 2022-10-29 | Outpatient (CLI) | payer MEDICARE, MEDICAID | LOC: M LAB 07:04 | PROVIDERS: ATTEND Internal Medicine | DX: E03.9 Hypothyroidism, unspecified (principal) ==

== ENCOUNTER → 2023-05-20 | Outpatient (REF) | payer MEDICARE, MEDICAID ==
[2023-05-29 13:08] LABS: CALPROTECTIN STOOL 30 ug/g (0-120); FATS NEUTRAL Normal (.); FATS TOTAL Normal (.); PANCREATIC ELASTASE STOOL 175 (>200)
== END ==
LOC: M LAB REF 10:10
PROVIDERS: ATTEND Nurse Practitioner Family
DX: R19.4 Change in bowel habit (principal); Z80.0 Family history of malignant neoplasm of digestive organs; Z12.11 Encounter for screening for malignant neoplasm of colon; R19.7 Diarrhea, unspecified; A04.9 Bacterial intestinal infection, unspecified

== ENCOUNTER → 2023-08-22 | Outpatient (CLI) | payer MEDICARE, MEDICAID ==
[~2023-08-22] MED LIST changes: +BAYE81TA7 PO; +FETZ1CAP2 PO; +GABA-282 PO; +LEVO88TA3 PO; +PANT40TA29 PO; +PRAM0.123 PO; +REST0.05 OU; +SYNT75TA PO; +TRAZ-257 PO; +VITA-183 PO; +VITMTA PO
[2023-08-22 10:01] LABS: BASO % 0.9 % (0.0-1.0); EOS # 0.1 10^3/uL (0.0-0.5); EOS % 1.2 % (0.0-3.0); HEMATOCRIT 36.8 % (36.0-47.0); HEMOGLOBIN 12.3 g/dl (12.0-15.5); LYMPH # 1.2 10^3/uL (1.5-5.0); LYMPH % 27.6 % (24.0-44.0); MEAN CORPUSCULAR HEMOGLOBIN 30.9 pg (27.0-33.0); MEAN CORPUSCULAR HGB CONC 33.4 g/dl (32.0-36.5); MEAN CORPUSCULAR VOLUME 92.5 fl (80.0-96.0); MONO # 0.4 10^3/uL (0.0-0.8); NEUTROPHILS # 2.6 10^3/uL (1.5-8.5); NEUTROPHILS % 60.1 % (36.0-66.0); PLATELET COUNT, AUTOMATED 224 10^3/uL (150-450); RED BLOOD COUNT 3.98 10^6/uL (4.00-5.40); WHITE BLOOD COUNT 4.3 10^3/uL (4.0-10.0)
[2023-08-22 10:20] LABS: ALBUMIN 3.8 G/DL (3.2-5.2); ALKALINE PHOSPHATASE 55 U/L (46-116); ALT/SGPT 28 U/L (7.0-40); AST/SGOT 15 U/L (<34); BILIRUBIN,TOTAL 0.4 MG/DL (0.3-1.2); BLOOD UREA NITROGEN 14 MG/DL (9-23); CARBON DIOXIDE LEVEL 31 MMOL/L (20-31); CHLORIDE LEVEL 104 MMOL/L (98-107); CREATININE FOR GFR 0.77 MG/DL (0.55-1.30); GLOMERULAR FILTRATION RATE > 60.0 (>39); GLUCOSE, FASTING 76 MG/DL (74-106); IRON (FE) 103 UG/DL (50-170); PERCENT SATURATION 37.3 % (13.2-45.0); POTASSIUM SERUM 4.3 MMOL/L (3.5-5.1); SODIUM LEVEL 138 MMOL/L (136-145); TOTAL IRON BINDING CAPACITY 276 UG/DL (250-425); TOTAL PROTEIN 6.5 G/DL (5.7-8.2)
[2023-08-22 10:22] LABS: THYROID STIMULATING HORMONE 0.953 uIU/ML (0.55-4.78); TOTAL 25(OH) VITAMIN D 40.2 NG/ML (20.0-100.0)
[2023-08-22 10:23] LABS: VITAMIN B12 LEVEL 891 PG/ML (211-911)
== END ==
LOC: M LAB 07:53
PROVIDERS: ATTEND Internal Medicine
DX: E03.9 Hypothyroidism, unspecified (principal); R53.82 Chronic fatigue, unspecified; Z86.39 Personal history of other endocrine, nutritional and metabolic disease; Z79.899 Other long term (current) drug therapy

== ENCOUNTER → 2023-09-08 | Outpatient (CLI) | payer MEDICARE, MEDICAID ==
[~2023-09-08] MED LIST changes: +THERTAB52 PO
[2023-09-08 08:29] LABS: BLOOD UREA NITROGEN 17 MG/DL (9-23); CREATININE FOR GFR 0.82 MG/DL (0.55-1.30); GLOMERULAR FILTRATION RATE > 60.0 (>39)
== END ==
LOC: M LAB 07:15
PROVIDERS: ATTEND Nurse Practitioner Family
DX: K86.81 Exocrine pancreatic insufficiency (principal)

== ENCOUNTER 2023-09-09 08:08 | Day surgery (SDC) | payer MEDICARE, MEDICAID ==
[~2023-09-09] VITALS: Ht 152.4 cm; Wt 57.2 kg
[2023-09-09] MEDS: NS 1,000 ML IV ONE (08:33)
[2023-09-09] MEDS ORDERED: propofoL 200 MG/20 ML VIAL As Ordered ONE (09:35)
[2023-09-09] MEDS ORDERED: LIDOCAINE 2% 100MG/5ML SDV (FOR ANES.) As Ordered ONE (09:35)
[2023-09-09 10:16] VITALS: TEMP 98.7
[2023-09-09 10:37] VITALS: BP 107/56; O2SAT 98
== END 2023-09-09 10:50 | disposition home or self-care (01) ==
LOC: M OPP 08:08
PROVIDERS: ATTEND Internal Medicine Gastroenterology
DX: Z12.11 Encounter for screening for malignant neoplasm of colon (principal); K64.4 Residual hemorrhoidal skin tags; K64.8 Other hemorrhoids; Q43.8 Other specified congenital malformations of intestine; Z79.02 Long term (current) use of antithrombotics/antiplatelets; Z79.82 Long term (current) use of aspirin; Z79.83 Long term (current) use of bisphosphonates; Z79.890 Hormone replacement therapy; Z79.891 Long term (current) use of opiate analgesic; Z79.899 Other long term (current) drug therapy

== ENCOUNTER → 2023-09-16 | Outpatient (CLI) | payer MEDICARE, MEDICAID ==
[~2023-09-16] MED LIST changes: +PROHANCE 279.3MG/ML 5ML VIAL ONE
== END ==
LOC: M PLAIMG 12:29
PROVIDERS: ATTEND Nurse Practitioner Family
DX: K86.81 Exocrine pancreatic insufficiency (principal); K76.89 Other specified diseases of liver; K80.20 Calculus of gallbladder without cholecystitis without obstruction
CPT/HCPCS: 74183; A9576

== ENCOUNTER → 2023-10-16 | Outpatient (REF) | payer MEDICARE, MEDICAID ==
[~2023-10-16] MED LIST changes: -PROHANCE 279.3MG/ML 5ML VIAL ONE
== END ==
LOC: M LAB REF 11:22
PROVIDERS: ATTEND Nurse Practitioner Family
DX: K86.81 Exocrine pancreatic insufficiency (principal)

== ENCOUNTER 2023-11-12 13:38 | Emergency (ER) | payer MEDICARE, MEDICAID ==
[~2023-11-12] VITALS: Ht 152.4 cm; Wt 56.9 kg
[2023-11-12 13:39] VITALS: TEMP 98
[2023-11-12 15:25] LABS: BASO # 0.1 10^3/uL (0.0-0.2); BASO % 0.7 % (0.0-1.0); EOS # 0.1 10^3/uL (0.0-0.5); EOS % 0.8 % (0.0-3.0); HEMATOCRIT 36.4 % (36.0-47.0); HEMOGLOBIN 12.4 g/dl (12.0-15.5); LYMPH % 24.5 % (24.0-44.0); MEAN CORPUSCULAR HEMOGLOBIN 30.3 pg (27.0-33.0); MEAN CORPUSCULAR HGB CONC 34.1 g/dl (32.0-36.5); MONO # 0.7 10^3/uL (0.0-0.8); MONO % 8.4 % (2.0-8.0); NEUTROPHILS # 5.4 10^3/uL (1.5-8.5); NEUTROPHILS % 65.1 % (36.0-66.0); PLATELET COUNT, AUTOMATED 275 10^3/uL (150-450); RED BLOOD COUNT 4.09 10^6/uL (4.00-5.40); WHITE BLOOD COUNT 8.2 10^3/uL (4.0-10.0)
[2023-11-12 15:53] LABS: CALCIUM LEVEL 9.1 MG/DL (8.3-10.6); CREATININE FOR GFR 1.01 MG/DL (0.55-1.30); GLOMERULAR FILTRATION RATE 57.2 (>39); POTASSIUM SERUM 4.5 MMOL/L (3.5-5.1)
[2023-11-12] MEDS ORDERED: PANT20TA6 PO (17:35)
[2023-11-12] MEDS ORDERED: BOTO100I IM (17:35)
[2023-11-12] MEDS ORDERED: LEVO88TA3 PO (17:35)
[2023-11-12] MEDS ORDERED: HOME MED LIST COMPLETE! XX SCH (17:40)
[2023-11-12 18:00] VITALS: BP 118/62
[2023-11-12 18:08] VITALS: O2SAT 96
[2023-11-12] MEDS ORDERED: ANUS25SU PR (18:12)
[2023-11-12] MEDS ORDERED: COLA100C5 PO (18:12)
== END 2023-11-12 18:30 | disposition home or self-care (01) ==
LOC: M ED 13:38
DX: K64.8 Other hemorrhoids (principal); R00.1 Bradycardia, unspecified; E78.5 Hyperlipidemia, unspecified; K21.9 Gastro-esophageal reflux disease without esophagitis; F41.9 Anxiety disorder, unspecified; F32.A Depression, unspecified; Z79.02 Long term (current) use of antithrombotics/antiplatelets; Z79.899 Other long term (current) drug therapy

== ENCOUNTER → 2023-11-18 | Outpatient (CLI) | payer MEDICARE, MEDICAID ==
[~2023-11-18] MED LIST changes: +ANUS25SU PR; +BOTO100I IM; +COLA100C5 PO; +PANT20TA6 PO
[2023-11-18 13:07] LABS: BASO # 0.1 10^3/uL (0.0-0.2); BASO % 0.8 % (0.0-1.0); EOS % 0.7 % (0.0-3.0); HEMATOCRIT 37.8 % (36.0-47.0); HEMOGLOBIN 12.8 g/dl (12.0-15.5); LYMPH # 1.6 10^3/uL (1.5-5.0); LYMPH % 26.6 % (24.0-44.0); MEAN CORPUSCULAR HEMOGLOBIN 30.7 pg (27.0-33.0); MEAN CORPUSCULAR HGB CONC 33.9 g/dl (32.0-36.5); MEAN CORPUSCULAR VOLUME 90.6 fl (80.0-96.0); MONO # 0.3 10^3/uL (0.0-0.8); MONO % 5.5 % (2.0-8.0); NEUTROPHILS # 4.1 10^3/uL (1.5-8.5); NEUTROPHILS % 66.2 % (36.0-66.0); PLATELET COUNT, AUTOMATED 284 10^3/uL (150-450); RED BLOOD COUNT 4.17 10^6/uL (4.00-5.40); WHITE BLOOD COUNT 6.1 10^3/uL (4.0-10.0)
[2023-11-18 13:19] LABS: ERYTHROCYTE SEDIMENTATION RATE 10 mm/hr (0-30)
[2023-11-18 13:36] LABS: C REACTIVE PROTEIN QUANTITATIV < 0.40 MG/DL (<1.0)
[2023-11-18 13:38] LABS: ALBUMIN 4.1 G/DL (3.2-5.2); ALKALINE PHOSPHATASE 49 U/L (46-116); ALT/SGPT 19 U/L (7.0-40); AST/SGOT 12 U/L (<34); BILIRUBIN,TOTAL 0.7 MG/DL (0.3-1.2); BLOOD UREA NITROGEN 12 MG/DL (9-23); CALCIUM LEVEL 9.3 MG/DL (8.3-10.6); CARBON DIOXIDE LEVEL 29 MMOL/L (20-31); CHLORIDE LEVEL 106 MMOL/L (98-107); CREATININE FOR GFR 0.73 MG/DL (0.55-1.30); GLOMERULAR FILTRATION RATE > 60.0 (>39); GLUCOSE, FASTING 93 MG/DL (74-106); IRON (FE) 102 UG/DL (50-170); PERCENT SATURATION 34.3 % (13.2-45.0); POTASSIUM SERUM 4.1 MMOL/L (3.5-5.1); SODIUM LEVEL 138 MMOL/L (136-145); TOTAL IRON BINDING CAPACITY 297 UG/DL (250-425); TOTAL PROTEIN 6.9 G/DL (5.7-8.2)
[2023-11-18 13:39] LABS: VITAMIN B12 LEVEL 793 PG/ML (211-911)
[2023-11-18 13:40] LABS: FOLATE > 24.0 NG/ML (>5.4); FREE T4 1.48 NG/DL (0.89-1.76); THYROID STIMULATING HORMONE 1.642 uIU/ML (0.55-4.78)
[2023-11-19 23:08] LABS: ANA (HEP2) Negative (.); EBV AB TO NUCLEAR ANTIGEN <18.0 U/mL (0.0-17.9); EBV VIRAL CAPSID AG IgG <18.0 U/mL (0.0-17.9); EBV VIRAL CAPSID AG IgM <36.0 U/mL (0.0-35.9)
== END ==
LOC: M LAB 12:07
PROVIDERS: ATTEND Nurse Practitioner Adult Health
DX: R53.83 Other fatigue (principal); Z86.39 Personal history of other endocrine, nutritional and metabolic disease

== ENCOUNTER → 2023-12-03 | Outpatient (CLI) | payer MEDICARE, MEDICAID | LOC: M LAB 14:44 | PROVIDERS: ATTEND Nurse Practitioner Adult Health | DX: R53.83 Other fatigue (principal) ==

== ENCOUNTER → 2023-12-11 | Outpatient (CLI) | payer MEDICARE, MEDICAID ==
[~2023-12-11] MED LIST changes: +GASTROGRAFIN SOLUTION 30ML As Ordered ONE; +ISOVUE-370 76% 100ML VIAL As Ordered ONE
== END ==
LOC: M PLAIMG 12-08 08:06 → M RAD 14:06
PROVIDERS: ATTEND Nurse Practitioner Adult Health
DX: R68.81 Early satiety (principal)
CPT/HCPCS: 74177; Q9963; Q9967

== ENCOUNTER → 2023-12-16 | Outpatient (REF) | payer MEDICARE, MEDICAID ==
[~2023-12-16] MED LIST changes: -GASTROGRAFIN SOLUTION 30ML As Ordered ONE; -ISOVUE-370 76% 100ML VIAL As Ordered ONE
[2023-12-17 09:52] LABS: SARS-COV-2 SEMI-QUANT IGG >150.00 index (<1.00)
== END ==
LOC: M LAB REF 09:48
PROVIDERS: ATTEND Nurse Practitioner Adult Health
DX: R53.83 Other fatigue (principal)

== ENCOUNTER → 2023-12-31 | Outpatient (CLI) | payer MEDICARE, MEDICAID | LOC: M WHC 14:00 | PROVIDERS: ATTEND Nurse Practitioner Adult Health | DX: Z12.31 Encounter for screening mammogram for malignant neoplasm of breast (principal) ==

== ENCOUNTER → 2024-02-17 | Outpatient (REF) | payer MEDICARE, MEDICAID | LOC: M SFHCDERM 17:24 | PROVIDERS: ATTEND Nurse Practitioner Family | DX: D22.39 Melanocytic nevi of other parts of face (principal) ==

== ENCOUNTER → 2024-02-24 | Outpatient (CLI) | payer MEDICARE, MEDICAID | LOC: M RAD 01-19 08:32 | PROVIDERS: ATTEND Nurse Practitioner Adult Health | DX: K59.00 Constipation, unspecified (principal); R68.81 Early satiety; R11.2 Nausea with vomiting, unspecified | CPT/HCPCS: 78264; A9541 ==

== ENCOUNTER → 2024-03-08 | Outpatient (CLI) | payer MEDICARE, MEDICAID ==
[2024-03-08 07:21] LABS: BASO # 0.1 10^3/uL (0.0-0.2); BASO % 1.3 % (0.0-1.0); EOS # 0.1 10^3/uL (0.0-0.5); EOS % 2.2 % (0.0-3.0); HEMATOCRIT 37.4 % (36.0-47.0); HEMOGLOBIN 12.6 g/dl (12.0-15.5); LYMPH # 1.3 10^3/uL (1.5-5.0); LYMPH % 29.5 % (24.0-44.0); MEAN CORPUSCULAR HEMOGLOBIN 31.2 pg (27.0-33.0); MEAN CORPUSCULAR HGB CONC 33.7 g/dl (32.0-36.5); MEAN CORPUSCULAR VOLUME 92.6 fl (80.0-96.0); MONO # 0.5 10^3/uL (0.0-0.8); MONO % 10.6 % (2.0-8.0); NEUTROPHILS # 2.6 10^3/uL (1.5-8.5); NEUTROPHILS % 56.4 % (36.0-66.0); PLATELET COUNT, AUTOMATED 206 10^3/uL (150-450); RED BLOOD COUNT 4.04 10^6/uL (4.00-5.40); WHITE BLOOD COUNT 4.5 10^3/uL (4.0-10.0)
[2024-03-08 07:38] LABS: ALBUMIN 3.8 G/DL (3.2-5.2); ALKALINE PHOSPHATASE 50 U/L (46-116); ALT/SGPT 33 U/L (7.0-40); AST/SGOT 25 U/L (<34); BILIRUBIN,TOTAL 0.5 MG/DL (0.3-1.2); BLOOD UREA NITROGEN 11 MG/DL (9-23); CALCIUM LEVEL 9.2 MG/DL (8.3-10.6); CARBON DIOXIDE LEVEL 31 MMOL/L (20-31); CHLORIDE LEVEL 106 MMOL/L (98-107); CHOLESTEROL LEVEL 180 MG/DL (<200); CHOLESTEROL RISK RATIO 2.23 (<5); CREATININE FOR GFR 0.82 MG/DL (0.55-1.30); GLOMERULAR FILTRATION RATE > 60.0 (>39); GLUCOSE, FASTING 92 MG/DL (74-106); HDL CHOLESTEROL 80.5 MG/DL (>40); LDL CHOLESTEROL 88.3 MG/DL (<100); NON-HDL-C 99.5 MG/DL; POTASSIUM SERUM 4.3 MMOL/L (3.5-5.1); SODIUM LEVEL 137 MMOL/L (136-145); TOTAL PROTEIN 6.7 G/DL (5.7-8.2); TRIGLYCERIDES LEVEL 56 MG/DL (<150)
[2024-03-08 07:40] LABS: FREE T4 1.24 NG/DL (0.89-1.76); THYROID STIMULATING HORMONE 3.914 uIU/ML (0.55-4.78); TOTAL 25(OH) VITAMIN D 34.4 NG/ML (20.0-100.0)
== END ==
LOC: M LAB 06:36
PROVIDERS: ATTEND Nurse Practitioner Adult Health
DX: E78.5 Hyperlipidemia, unspecified (principal); E03.9 Hypothyroidism, unspecified; E55.9 Vitamin D deficiency, unspecified

== ENCOUNTER → 2024-08-31 | Outpatient (CLI) | payer MEDICARE, MEDICAID ==
[~2024-08-31] MED LIST changes: +GABA-1172 PO; -GABA-282 PO
[2024-08-31 09:14] LABS: BASO # 0.1 10^3/uL (0.0-0.2); EOS # 0.1 10^3/uL (0.0-0.5); HEMATOCRIT 38.5 % (36.0-47.0); HEMOGLOBIN 13.1 g/dl (12.0-15.5); LYMPH # 1.3 10^3/uL (1.5-5.0); MEAN CORPUSCULAR HEMOGLOBIN 31.3 pg (27.0-33.0); MEAN CORPUSCULAR VOLUME 92.1 fl (80.0-96.0); MONO # 0.5 10^3/uL (0.0-0.8); NEUTROPHILS % 61.8 % (36.0-66.0); PLATELET COUNT, AUTOMATED 203 10^3/uL (150-450); RED BLOOD COUNT 4.18 10^6/uL (4.00-5.40); WHITE BLOOD COUNT 4.9 10^3/uL (4.0-10.0)
[2024-08-31 09:43] LABS: IRON (FE) 92 UG/DL (50-170)
[2024-08-31 09:44] LABS: ALKALINE PHOSPHATASE 50 U/L (35-104); ALT/SGPT 27 U/L (7.0-40); AST/SGOT 21 U/L (<34); BILIRUBIN,TOTAL 0.4 MG/DL (0.3-1.2); BLOOD UREA NITROGEN 22 MG/DL (9-23); CALCIUM LEVEL 9.4 MG/DL (8.3-10.6); CARBON DIOXIDE LEVEL 30 MMOL/L (20-31); CHLORIDE LEVEL 103 MMOL/L (98-107); CHOLESTEROL LEVEL 174 MG/DL (<200); FOLATE > 24.0 NG/ML (>5.4); GLOMERULAR FILTRATION RATE > 60.0 (>39); GLUCOSE, FASTING 97 MG/DL (74-106); HDL CHOLESTEROL 82.7 MG/DL (>40); LDL CHOLESTEROL 82.3 MG/DL (<100); MAGNESIUM LEVEL 2.1 MG/DL (1.8-2.4); NON-HDL-C 91.3 MG/DL; PERCENT SATURATION 29.6 % (13.2-45.0); POTASSIUM SERUM 4.6 MMOL/L (3.5-5.1); SODIUM LEVEL 139 MMOL/L (136-145); TOTAL IRON BINDING CAPACITY 311 UG/DL (250-425); TOTAL PROTEIN 7.1 G/DL (5.7-8.2); TRIGLYCERIDES LEVEL 45 MG/DL (<150); VITAMIN B12 LEVEL 943 PG/ML (211-911)
[2024-08-31 09:45] LABS: FERRITIN 51.1 NG/ML (7.3-270.7); THYROID STIMULATING HORMONE 2.957 uIU/ML (0.55-4.78); TOTAL 25(OH) VITAMIN D 49.2 NG/ML (20.0-100.0)
[2024-08-31 09:46] LABS: FREE T4 1.24 NG/DL (0.89-1.76)
== END ==
LOC: M LAB 08:16
PROVIDERS: ATTEND Nurse Practitioner Adult Health
DX: E55.9 Vitamin D deficiency, unspecified (principal); R53.83 Other fatigue; E78.5 Hyperlipidemia, unspecified; E03.9 Hypothyroidism, unspecified; G25.81 Restless legs syndrome

== ENCOUNTER → 2024-09-29 | Outpatient (CLI) | payer MEDICARE, MEDICAID | LOC: M SLEEP HO 08:42 | PROVIDERS: ATTEND Nurse Practitioner Adult Health | DX: R53.83 Other fatigue (principal); R06.83 Snoring ==

== ENCOUNTER → 2025-01-03 | Outpatient (CLI) | payer MEDICARE, MEDICAID ==
[~2025-01-03] MED LIST changes: -BUPR1TAB56 PO; +BUPR200T45 PO; +D31000CA6 PO; -VITA-183 PO
== END ==
LOC: M WHC 06:59
PROVIDERS: ATTEND Nurse Practitioner Adult Health
DX: Z12.31 Encounter for screening mammogram for malignant neoplasm of breast (principal); Z13.820 Encounter for screening for osteoporosis; M85.88 Other specified disorders of bone density and structure, other site; M85.851 Other specified disorders of bone density and structure, right thigh; M85.852 Other specified disorders of bone density and structure, left thigh; R92.333 Mammographic heterogeneous density, bilateral breasts

== ENCOUNTER → 2025-03-04 | Outpatient (CLI) | payer MEDICARE, MEDICAID ==
[2025-03-04 07:14] LABS: BASO # 0.1 10^3/uL (0.0-0.2); BASO % 1.1 % (0.0-1.0); EOS # 0.2 10^3/uL (0.0-0.5); EOS % 3.6 % (0.0-3.0); LYMPH # 1.1 10^3/uL (1.5-5.0); LYMPH % 24.5 % (24.0-44.0); MONO # 0.5 10^3/uL (0.0-0.8); MONO % 11.0 % (2.0-8.0); NEUTROPHILS # 2.7 10^3/uL (1.5-8.5); NEUTROPHILS % 59.8 % (36.0-66.0); PLATELET COUNT, AUTOMATED 198 10^3/uL (150-450)
[2025-03-04 07:42] LABS: ALT/SGPT 30 U/L (7.0-40); AST/SGOT 29 U/L (<34); CALCIUM LEVEL 9.8 MG/DL (8.3-10.6); CARBON DIOXIDE LEVEL 31 MMOL/L (20-31); CHLORIDE LEVEL 104 MMOL/L (98-107); CHOLESTEROL LEVEL 162 MG/DL (<200); CHOLESTEROL RISK RATIO 2.05 (<5); CREATININE FOR GFR 0.88 MG/DL (0.55-1.30); GLOMERULAR FILTRATION RATE 68.9 (>39); LDL CHOLESTEROL 73.6 MG/DL (<100); NON-HDL-C 83.0 MG/DL; POTASSIUM SERUM 4.5 MMOL/L (3.5-5.1); SODIUM LEVEL 143 MMOL/L (136-145); TRIGLYCERIDES LEVEL 47 MG/DL (<150)
[2025-03-04 07:44] LABS: TOTAL 25(OH) VITAMIN D 49.5 NG/ML (20.0-100.0)
[2025-03-04 07:45] LABS: FREE T4 1.16 NG/DL (0.89-1.76)
[2025-03-04 08:18] LABS: CA19-9 TUMOR MARKER,CARBOHYDRA < 1.2 U/ML (<35.0)
== END ==
LOC: M LAB 06:54
PROVIDERS: ATTEND Nurse Practitioner Adult Health
DX: E78.5 Hyperlipidemia, unspecified (principal); E03.9 Hypothyroidism, unspecified; E55.9 Vitamin D deficiency, unspecified; Z80.0 Family history of malignant neoplasm of digestive organs; Z79.899 Other long term (current) drug therapy; Z85.828 Personal history of other malignant neoplasm of skin

== ENCOUNTER → 2025-03-16 | Outpatient (CLI) | payer MEDICARE, MEDICAID | LOC: M RAD 07:11 | PROVIDERS: ATTEND Nurse Practitioner Adult Health | DX: K80.20 Calculus of gallbladder without cholecystitis without obstruction (principal); Z80.0 Family history of malignant neoplasm of digestive organs; K76.89 Other specified diseases of liver ==

== ENCOUNTER → 2025-04-07 | Outpatient (CLI) | payer MEDICARE, MEDICAID ==
[~2025-04-07] MED LIST changes: +CEPH25SS PO
[2025-04-07 07:06] LABS: BASO # 0.0 10^3/uL (0.0-0.2); BASO % 0.8 % (0.0-1.0); EOS # 0.1 10^3/uL (0.0-0.5); EOS % 2.1 % (0.0-3.0); LYMPH # 1.2 10^3/uL (1.5-5.0); LYMPH % 26.3 % (24.0-44.0); MONO # 0.5 10^3/uL (0.0-0.8); MONO % 11.0 % (2.0-8.0); NEUTROPHILS # 2.8 10^3/uL (1.5-8.5); NEUTROPHILS % 59.6 % (36.0-66.0); PLATELET COUNT, AUTOMATED 214 10^3/uL (150-450)
[2025-04-07 07:39] LABS: ESTIMATED AVERAGE GLUCOSE 111.0 MG/DL (60-110)
[2025-04-07 07:41] LABS: IRON (FE) 85.0 UG/DL (50-170); PERCENT SATURATION 27.1 % (13.2-45.0)
[2025-04-07 07:42] LABS: FREE T4 1.49 NG/DL (0.89-1.76)
[2025-04-07 07:43] LABS: TOTAL 25(OH) VITAMIN D 49.7 NG/ML (20.0-100.0)
[2025-04-07 07:44] LABS: VITAMIN B12 LEVEL 1465.0 PG/ML (211-911)
[2025-04-14 17:56] LABS: INSULIN FREE 2.6 uIU/mL (1.5-14.9); INSULIN TOTAL2 3.7 uIU/mL
== END ==
LOC: M LAB 06:28
PROVIDERS: ATTEND Nurse Practitioner Adult Health
DX: R53.83 Other fatigue (principal); D50.9 Iron deficiency anemia, unspecified

== ENCOUNTER 2025-04-13 03:16 | Emergency (ER) | payer MEDICARE, MEDICAID ==
[~2025-04-13] VITALS: Ht 154.9 cm; Wt 63.1 kg
[~2025-04-13 03:16] MED LIST changes: -CEPH25SS PO
[2025-04-13 03:59] LABS: BASO # 0.1 10^3/uL (0.0-0.2); BASO % 0.4 % (0.0-1.0); EOS # 0.0 10^3/uL (0.0-0.5); EOS % 0.4 % (0.0-3.0); LYMPH # 0.6 10^3/uL (1.5-5.0); LYMPH % 5.4 % (24.0-44.0); MONO # 0.7 10^3/uL (0.0-0.8); MONO % 5.7 % (2.0-8.0); NEUTROPHILS # 10.0 10^3/uL (1.5-8.5); NEUTROPHILS % 87.8 % (36.0-66.0); PLATELET COUNT, AUTOMATED 210 10^3/uL (150-450)
[2025-04-13 04:25] LABS: CALCIUM LEVEL 9.4 MG/DL (8.3-10.6); CARBON DIOXIDE LEVEL 30.0 MMOL/L (20-31); CHLORIDE LEVEL 98.0 MMOL/L (98-107); CREATININE FOR GFR 0.83 MG/DL (0.55-1.30); GLOMERULAR FILTRATION RATE 73.9 (>39); POTASSIUM SERUM 4.4 MMOL/L (3.5-5.1); SODIUM LEVEL 135.0 MMOL/L (136-145)
[2025-04-13 07:24] LABS: ALT/SGPT 21.0 U/L (7.0-40); AST/SGOT 22.0 U/L (<34); MAGNESIUM LEVEL 1.8 MG/DL (1.8-2.4); PHOSPHORUS LEVEL 3.4 MG/DL (2.4-5.1)
[2025-04-13] MEDS: KETOROLAC 30 MG/ML 1 ML VIAL IV ONE (07:34)
[2025-04-13] MEDS: NS (Normal Saline) 0.9% 1,000 ML IV ONE (07:34)
[2025-04-13 08:04] LABS: KETONE, URINE AUTO RFX NEGATIVE (NEGATIVE); LEUKOCYTE ESTERASE UR AUTO RFX 3+ (NEGATIVE); NITRITE, URINE AUTO RFX NEGATIVE (NEGATIVE); RBC, URINE AUTO RFX 5 /HPF (0-3); SQUAM EPITHELIAL CELL UR AURFX 0 /HPF (0-6); WBC, URINE AUTO RFX 65 /HPF (0-3)
[2025-04-13] MEDS: cefTRIAXone SOD 1 GM in DEXTROSE 5% (D5W) ADV/MINI-BAG 50 ML IV ONE (08:21)
[2025-04-13] MEDS ORDERED: CEPH25SS PO (09:28)
[2025-04-13 09:30] VITALS: BP 106/56; TEMP 97.9; O2SAT 97
== END 2025-04-13 09:38 | disposition home or self-care (01) ==
LOC: M ED 03:16
DX: N30.00 Acute cystitis without hematuria (principal); G25.1 Drug-induced tremor; E03.9 Hypothyroidism, unspecified; F12.10 Cannabis abuse, uncomplicated; Z79.2 Long term (current) use of antibiotics; Z79.899 Other long term (current) drug therapy
CPT/HCPCS: 76775; 80048; 80076; 81001; 83735; 84100; 85025; 87088; 87186; 96361; 96365; 96375; 99284; J0696; J1885

== ENCOUNTER → 2025-04-28 | Outpatient (CLI) | payer MEDICARE, MEDICAID ==
[~2025-04-28] MED LIST changes: +CEPH25SS PO
== END ==
LOC: M RAD 07:15
PROVIDERS: ATTEND Nurse Practitioner Adult Health
DX: K81.9 Cholecystitis, unspecified (principal); K76.9 Liver disease, unspecified

== ENCOUNTER → 2025-05-03 | Outpatient (REF) | payer MEDICARE, MEDICAID ==
[2025-05-03 13:47] LABS: APPEARANCE, URINE CLEAR (CLEAR); BACTERIA, URINE AUTO NEGATIVE (NEGATIVE); BILIRUBIN, URINE AUTO NEGATIVE (NEGATIVE); BLOOD, URINE BLOOD NEGATIVE (NEGATIVE); GLUCOSE, URINE (UA) AUTO NEGATIVE (NEGATIVE); KETONE, URINE AUTO NEGATIVE (NEGATIVE); LEUKOCYTE ESTERASE, URINE AUTO NEGATIVE (NEGATIVE); NITRITE, URINE AUTO NEGATIVE (NEGATIVE); PROTEIN, URINE AUTO NEGATIVE (NEGATIVE); RBC, URINE AUTO 0 /HPF (0-3); SPECIFIC GRAVITY URINE AUTO 1.009 (1.002-1.035); SQUAMOUS EPITHELIAL CELL UR AU 0 /HPF (0-6); UROBILINOGEN, URINE AUTO 0.2 mg/dL (0.0-2.0); WBC, URINE AUTO 1 /HPF (0-3)
== END ==
LOC: M SMT 13:00
PROVIDERS: ATTEND Nurse Practitioner Family
DX: Z87.440 Personal history of urinary (tract) infections (principal); Z79.899 Other long term (current) drug therapy

== ENCOUNTER → 2025-05-19 | Outpatient (CLI) | payer MEDICARE, MEDICAID | LOC: M WHC 10:26 | PROVIDERS: ATTEND Nurse Practitioner Family | DX: R93.41 Abnormal radiologic findings on diagnostic imaging of renal pelvis, ureter, or bladder (principal) ==

== ENCOUNTER → 2025-06-06 | Outpatient (CLI) | payer MEDICARE, MEDICAID ==
[~2025-06-06] MED LIST changes: +ALBU8.5H INH; +PRED20TA PO
[2025-06-06 18:45] LABS: BASO # 0.1 10^3/uL (0.0-0.2); BASO % 0.8 % (0.0-1.0); EOS # 0.1 10^3/uL (0.0-0.5); EOS % 1.3 % (0.0-3.0); LYMPH # 1.5 10^3/uL (1.5-5.0); LYMPH % 23.9 % (24.0-44.0); MONO # 0.6 10^3/uL (0.0-0.8); MONO % 9.4 % (2.0-8.0); NEUTROPHILS # 3.9 10^3/uL (1.5-8.5); NEUTROPHILS % 64.4 % (36.0-66.0); PLATELET COUNT, AUTOMATED 229 10^3/uL (150-450)
[2025-06-06 19:15] LABS: TOTAL 25(OH) VITAMIN D 45.4 NG/ML (20.0-100.0)
[2025-06-06 19:17] LABS: FREE T4 1.37 NG/DL (0.89-1.76); VITAMIN B12 LEVEL 1864 PG/ML (211-911)
[2025-06-06 19:37] LABS: CALCIUM LEVEL 9.3 MG/DL (8.3-10.6); CARBON DIOXIDE LEVEL 29 MMOL/L (20-31); CHLORIDE LEVEL 97 MMOL/L (98-107); CREATININE FOR GFR 0.76 MG/DL (0.55-1.30); GLOMERULAR FILTRATION RATE 81.7 (>39); POTASSIUM SERUM 4.3 MMOL/L (3.5-5.1); SODIUM LEVEL 135 MMOL/L (136-145)
[2025-06-06 19:38] LABS: IRON (FE) 58 UG/DL (50-170); PERCENT SATURATION 18.6 % (13.2-45.0)
== END ==
LOC: M PLALAB 14:33
PROVIDERS: ATTEND Nurse Practitioner Adult Health
DX: R06.02 Shortness of breath (principal); R53.83 Other fatigue; Z79.899 Other long term (current) drug therapy; E03.9 Hypothyroidism, unspecified; G25.81 Restless legs syndrome; K21.9 Gastro-esophageal reflux disease without esophagitis; F41.1 Generalized anxiety disorder; G24.09 Other drug induced dystonia; J30.9 Allergic rhinitis, unspecified; Z80.0 Family history of malignant neoplasm of digestive organs

== ENCOUNTER → 2025-06-10 | Outpatient (CLI) | payer MEDICARE, MEDICAID ==
[2025-06-10 16:26] LABS: CALCIUM LEVEL 9.1 MG/DL (8.3-10.6); CARBON DIOXIDE LEVEL 29.0 MMOL/L (20-31); CHLORIDE LEVEL 98.0 MMOL/L (98-107); CREATININE FOR GFR 1.17 MG/DL (0.55-1.30); GLOMERULAR FILTRATION RATE 48.7 (>39); POTASSIUM SERUM 3.9 MMOL/L (3.5-5.1); SODIUM LEVEL 138.0 MMOL/L (136-145)
== END ==
LOC: M PLALAB 14:10
PROVIDERS: ATTEND Family Medicine
DX: I50.9 Heart failure, unspecified (principal); I51.7 Cardiomegaly

== ENCOUNTER 2025-06-11 17:29 | Emergency (ER) | payer MEDICARE, MEDICAID ==
[~2025-06-11] VITALS: Ht 152.4 cm; Wt 61.3 kg
[~2025-06-11 17:29] MED LIST changes: -ALBU8.5H INH; -PRED20TA PO
[2025-06-11 18:16] LABS: BASO # 0.1 10^3/uL (0.0-0.2); BASO % 0.9 % (0.0-1.0); EOS # 0.1 10^3/uL (0.0-0.5); EOS % 0.9 % (0.0-3.0); LYMPH # 1.6 10^3/uL (1.5-5.0); LYMPH % 27.6 % (24.0-44.0); MONO # 0.6 10^3/uL (0.0-0.8); MONO % 9.9 % (2.0-8.0); NEUTROPHILS # 3.4 10^3/uL (1.5-8.5); NEUTROPHILS % 60.5 % (36.0-66.0); PLATELET COUNT, AUTOMATED 233 10^3/uL (150-450)
[2025-06-11 18:44] LABS: CK-MB VALUE MASS 3.0 NG/ML (<3.6)
[2025-06-11 18:47] LABS: ALT/SGPT 27 U/L (7.0-40); AST/SGOT 32 U/L (<34); CALCIUM LEVEL 9.2 MG/DL (8.3-10.6); CARBON DIOXIDE LEVEL 32 MMOL/L (20-31); CHLORIDE LEVEL 95 MMOL/L (98-107); CREATININE FOR GFR 0.76 MG/DL (0.55-1.30); GLOMERULAR FILTRATION RATE 81.7 (>39); POTASSIUM SERUM 3.3 MMOL/L (3.5-5.1); SODIUM LEVEL 135 MMOL/L (136-145)
[2025-06-11 18:50] LABS: INR 0.94
[2025-06-11 18:54] LABS: CPK CREATINE PHOSPHOKINASE 170 U/L (34-145); MB/CK RELATIVE INDEX 1.76 (< OR =4)
[2025-06-11] MEDS ORDERED: ISOVUE-370 76% 100 ML VIAL As Ordered ONE (19:11)
[2025-06-11 19:34] LABS: CK-MB VALUE MASS 2.7 NG/ML (<3.6)
[2025-06-11 19:35] LABS: CPK CREATINE PHOSPHOKINASE 137.0 U/L (34-145); MB/CK RELATIVE INDEX 1.97 (< OR =4)
[2025-06-11 21:28] LABS: CK-MB VALUE MASS 2.8 NG/ML (<3.6)
[2025-06-11 21:34] LABS: CPK CREATINE PHOSPHOKINASE 145.0 U/L (34-145); MB/CK RELATIVE INDEX 1.93 (< OR =4)
[2025-06-11] MEDS ORDERED: PRED20TA PO (23:37)
[2025-06-11] MEDS ORDERED: ALBU8.5H INH (23:37)
[2025-06-11 23:45] VITALS: BP 109/58; TEMP 97.6; O2SAT 96
[2025-06-11] MEDS: predniSONE 20 MG TAB PO ONE (23:53)
== END 2025-06-12 | disposition home or self-care (01) ==
LOC: M ED 20:28
DX: R07.9 Chest pain, unspecified (principal); R06.02 Shortness of breath; K59.00 Constipation, unspecified; E78.5 Hyperlipidemia, unspecified; K21.9 Gastro-esophageal reflux disease without esophagitis; F41.9 Anxiety disorder, unspecified; I70.90 Unspecified atherosclerosis; K40.90 Unilateral inguinal hernia, without obstruction or gangrene, not specified as recurrent; K76.89 Other specified diseases of liver; F32.A Depression, unspecified; Z86.79 Personal history of other diseases of the circulatory system; Z98.82 Breast implant status; Z79.52 Long term (current) use of systemic steroids; Z79.899 Other long term (current) drug therapy
CPT/HCPCS: 36415; 71045; 71275; 74177; 80053; 82248; 82550; 82553; 83690; 83880; 84145; 84443; 84484; 85025; 85610; 85652; 85730; 87486; 87581; 87633; 87798; 93005; 93041; 94760; 99285; J7512; Q9967

== ENCOUNTER → 2025-06-29 | Outpatient (CLI) | payer MEDICARE, MEDICAID ==
[~2025-06-29] MED LIST changes: +ALBU8.5H INH; +PRED20TA PO
== END ==
LOC: M PLAIMG 09:48
PROVIDERS: ATTEND Nurse Practitioner Adult Health
DX: R51.9 Headache, unspecified (principal)